=== PATIENT | female | born 1965 | race Caucasian/White ===

== ENCOUNTER 2020-02-22 21:07 | Emergency (ER) | payer BC ==
[~2020-02-22] VITALS: Ht 162.6 cm; Wt 104.3 kg
--- NOTE | 2020-02-22 21:07 | NUR ---
55 Y/O FEMALE BIBA FROM HOME PRIMARY C/O HIGH BLOOD SUGAR, FBS 480. UPON ARRIVAL TO ER PT STATES SHE HAS BEEN HAVING LEG PAIN X 1 DAY AND UNABLE TO AMBULATE. 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 BL PEDAL PULSES WEAK. PT C/O OF SEVERE BACK PAIN 10/10 WELL. NO OBSERVED BLEEDING OR TRAUMA NOTED TO BACK. RR EVEN AND UNLABORED. PT CHEST AND UPPER EXTREMITIES OBSERVED REDNESS AND CLAMMY TO TOUCH. A/O X 4, S1S2 NOTED. NO CAP REFIL NOTED ON LOWER EXTREMITIES. ERMD AT BEDSIDE. 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 PT RESTING IN BED, LOCKED AND IN LOWEST POSITION ,HOB ELEVATED , SIDE RAIL X 2 FOR PT SAFETY. PMH: DM , HTN NKA
--- NOTE | 2020-02-22 21:07 | NUR ---
PT SHAR JOHNSON. TAKEN TO BED 11
--- NOTE | 2020-02-22 21:07 | NUR ---
Dr. Mckeon examining patient.
--- NOTE | 2020-02-22 21:16 | NUR ---
CALLED FOR STAT CT PER DR. ARCE
--- NOTE | 2020-02-22 21:26 | NUR ---
PT TAKEN TO CT
--- NOTE | 2020-02-22 21:27 | NUR ---
AT CT W/ PT AT THIS TIME.
--- NOTE | 2020-02-22 21:32 | NUR ---
BLOOD CULTURES AND LABS COLLECTED BY [employer]
--- NOTE | 2020-02-22 21:43 | NUR ---
PT RETURN FROM CT
[2020-02-22 21:44] LABS: BASOPHILS # (AUTO) 0.1 K/uL (0.00-0.22); BASOPHILS % (AUTO) 0.4 % (0.0-2.0); EOSINOPHILS % (AUTO) 0.1 % (0.0-4.0); HEMATOCRIT 53.2 % (36-48); HEMOGLOBIN 17.8 g/dL (12.0-16.0); LYMPHOCYTES # (AUTO) 2.7 K/uL (2.5-16.5); MEAN CORPUSCULAR HEMOGLOBIN 29 pg (27-31); MEAN CORPUSCULAR HGB CONC 34 g/dL (33-37); MEAN CORPUSCULAR VOLUME 85.9 fL (80-94); MONOCYTES # (AUTO) 1.2 K/uL (0.8-1.0); MONOCYTES % (AUTO) 6.9 % (1.7-9.3); NEUTROPHILS # (AUTO) 13.7 K/uL (1.8-7.7); NEUTROPHILS % (AUTO) 77.6 % (42.2-75.2); PLATELET COUNT (AUTO) 261 K/uL (140-450); RED BLOOD CELL COUNT(AUTO) 6.19 MIL/uL (4.20-5.40); RED CELL DISTRIBUTION WIDTH 14.1 % (11.6-13.7); WHITE BLOOD COUNT (AUTO) 17.7 K/uL (4.8-10.8)
[2020-02-22] MEDS ORDERED: fentaNYL citrate 0.05 MG/ML VIAL ONE (21:45)
--- NOTE | 2020-02-22 21:45 | NUR ---
PT C/O 12/25 BACK AND BL LEG PAIN - ERMD MADE AWARE.
[2020-02-22] MEDS ORDERED: fentaNYL citrate 0.05 MG/ML VIAL IVP ONE ×2 (21:50→22:25)
[2020-02-22 21:55] VITALS: BP 134/94
--- NOTE | 2020-02-22 21:58 | NUR ---
DR. ARCE SPEAKING WITH RADIOLOGIST READING CT OVER THE PHONE. PT TO RETURN TO CT
--- NOTE | 2020-02-22 21:59 | NUR ---
PT TAKEN TO CT
[2020-02-22 22:00] LABS: PROTHROMBIN TIME 9.4 secs (10.8-13.4)
--- NOTE | 2020-02-22 22:00 | NUR ---
[facility] SWAB COLLECTED AND WALKED TO LAB.
[2020-02-22 22:04] LABS: ALBUMIN 3.7 g/dL (3.4-5.0); ANION GAP 23.3 (8-16); CARBON DIOXIDE 20.5 mmol/L (21-32); CREATININE 1.2 mg/dL (0.6-1.3); POTASSIUM 3.8 mmol/L (3.5-5.1); TOTAL BILIRUBIN 0.9 mg/dL (0.0-1.0)
--- NOTE | 2020-02-22 22:15 | NUR ---
PER AUTHORIZATION FROM CHARGE NURSE AND ERMD , AT BEDSIDE AT THIS TIME.
--- NOTE | 2020-02-22 22:18 | NUR ---
PT RETURN FROM CT
[2020-02-22] MEDS ORDERED: NACL 0.9% 1,000 ML IV ONE (22:20)
[2020-02-22] MEDS ORDERED: HEPARIN PER PHARMACY MC PRN (22:20)
[2020-02-22] MEDS ORDERED: hePARIN / DEXT 5% PREMIX 250 ML IV ONE (22:20)
--- NOTE | 2020-02-22 23:02 | NUR ---
[facility] SWAB COLLECTED AND WALKED TO LAB.
--- NOTE | 2020-02-22 23:13 | NUR ---
LEFT MESSAGE FOR GRABIEL FROM [facility] TO PROVIDE CLINICAL INFORMATION FOR TRANSFERRING OF PT.
--- NOTE | 2020-02-22 23:40 | NUR ---
PERINEAL CARE PROVIDED - NO INJURY OR BLOOD NOTED ON BACK AT THIS TIME . PROCEDURE TOLERATED WELL BY PT.
--- NOTE | 2020-02-23 00:22 | NUR ---
PT C/O OF BACK PAIN 12/25 - RONEN ARCE MADE AWARE - WILL PROVIDED PAIN MEDICATION ORDER AT THIS TIME.
[2020-02-23] MEDS ORDERED: fentaNYL citrate 0.05 MG/ML VIAL ONE (00:27)
[2020-02-23] MEDS ORDERED: fentaNYL citrate 0.05 MG/ML VIAL IVP ONE (00:35)
--- NOTE | 2020-02-23 00:45 | NUR ---
Patient to be transferred to [facility] . Is being transferred due to NEED FOR HIGHER LEVEL OF CARE. Receiving facility has accepting physician and available space. ER physician has signed transfer form. Patient or responsible libertarian has agreed to transfer and signed form. Patient belongings inventoried and will be sent with patient. Copy of nursing notes, lab reports, EKG, Physicians Orders and X-rays to be sent with patient. Report called to DMITRY RIBEIRO at receiving facility. [facility] ambulance service has been called for transfer. ETA is 30 MIN.
[2020-02-23] MEDS ORDERED: PIPERACILLIN/TAZOBACTAM 3.375 GM in DEXTROSE 5% 50 ML IV ONE (01:00)
[2020-02-23] MEDS ORDERED: PIPERACILLIN/TAZOBACTAM 3.375 GM VIAL IV ONE (01:03)
--- NOTE | 2020-02-23 01:05 | NUR ---
[place]ED DMITRY RIBEIRO [place] [facility] [place] UPDATE [place] STATUS AND NEW MEDICATION ORDER OF [place].
--- NOTE | 2020-02-23 01:25 | NUR ---
[facility] AT BEDSIDE
--- NOTE | 2020-02-23 01:30 | NUR ---
# 16 FR Ordaz catheter with 10 ml utilizing sterile technique. Immediate return of 800 ml YELLOW urine noted. Bedside drainage bag placed below level of bladder. Urine sample collected and sent to lab. Pt tolerated procedure WELL.
[2020-02-23 01:38] VITALS: BP 115/78
--- NOTE | 2020-02-23 01:38 | NUR ---
PT TAKEN BY DARÍO TO [facility] VIA CODE 3
--- NOTE | 2020-02-23 01:38 | NUR ---
PT TRANSFERRED AT THIS TIME VIA [facility] TO [facility] FOR HIGHER LEVEL OF CARE , REPORT ALREADY PROVIDED TO RECEIVING NURSE : DMITRY RIBEIRO.
--- NOTE | 2020-02-23 01:46 | NUR ---
CALLED DMITRY RIBEIRO FROM [facility] TO INFORM HER THAT PT IS ON HER WAY AND PRIOR TO DEPARTURE PER ERMD ORDER URINARY HARRIS CATHETER WAS PLACED.
== END 2020-02-23 01:38 | disposition short-term general hospital (02) ==
LOC: MED 21:07
DX: R03.0 Elevated blood-pressure reading, without diagnosis of hypertension (principal); R11.2 Nausea with vomiting, unspecified; R73.9 Hyperglycemia, unspecified
CPT/HCPCS: 36415; 71275; 74174; 80053; 82550; 82553; 83605; 83880; 84484; 85025; 85610; 85730; 86886; 86900; 86901; 87040; 87426; 93005; 96365; 96366; 96368; 96375; 96376; 99291; 99292; J1644; J2543; J3010; J7030; Q9967; U0003